=== PATIENT | female | born 1960 | race Caucasian/White ===

== ENCOUNTER 2017-07-30 20:14 | Inpatient (IN) | payer OTHER ==
[2017-07-30 20:14] VITALS: BMI 43.9
[2017-07-30] MEDS ORDERED: Sodium Chloride 0.9% 1,000 ML IV ONE (21:01)
--- NOTE | 2017-07-30 21:01 | C.PDOC ---
History Of Present Illness Patient presents to the ED for evaluation of right upper quadrant abdominal pain which began around 10 days ago. Patient states her pain is associated with nausea, vomiting, and diarrhea. She states symptoms have worsened today and presents to the ED for further evaluation. She denies fever, chills, dysuria, hematuria. Time Seen by Provider: 07/30/17 21:01 Chief Complaint (Nursing): Abdominal Pain History Per: Patient History/Exam Limitations: no limitations Onset/Duration Of Symptoms: Days Current Symptoms Are (Timing): Worse Severity: Mild Pain Scale Rating Of: 4 Location Of Pain/Discomfort: RUQ Radiation Of Pain To:: None Quality Of Discomfort: "Pain" Associated Symptoms: Nausea, Vomiting, Diarrhea. denies: Fever, Chills, Urinary Symptoms (dysuria, hematuria ) Exacerbating Factors: None Alleviating Factors: None Last Bowel Movement: Today Recent travel outside of the [place]: No Additional History Per: Patient Abnormal Vaginal Bleeding: No Past Medical History Reviewed: Historical Data, Nursing Documentation, Vital Signs Vital Signs: Last Vital Signs Temp 98.4 F 07/30/17 23:52 Pulse 87 07/30/17 23:52 Resp 18 07/30/17 23:52 BP 147/88 07/30/17 23:52 Pulse Ox 97 07/30/17 23:55 - Medical History PMH: Arthritis, Back Problems, HTN, Rheumatoid Arthritis Surgical History: Cholecystectomy - [facility] KNEE SYNOVECTOMY (10/06/13) OTH ARTHROTOMY-KNEE (10/06/13) OTHER REPAIR OF KNEE (10/06/13) Family History: States: Unknown Family Hx - Social History Hx Tobacco Use: No Hx Alcohol Use: No Hx Substance Use: No - Immunization History Hx Tetanus Toxoid Vaccination: No Hx Influenza Vaccination: No Hx Pneumococcal Vaccination: No Review Of Systems Constitutional: Negative for: Fever, Chills Cardiovascular: Negative for: Chest Pain, Palpitations Respiratory: Negative for: Cough, Shortness of Breath Gastrointestinal: Positive for: Nausea, Vomiting, Abdominal Pain (right upper quadrant ), Diarrhea Genitourinary: Negative for: Dysuria, Frequency, Hematuria Musculoskeletal: Negative for: Back Pain Skin: Negative for: Rash, Lesions, Jaundice, Bruising Neurological: Negative for: Weakness, Numbness Physical Exam - Physical Exam Appears: Non-toxic, No Acute Distress, Other (morbidly obese ) Skin: Warm, Dry Head: Normacephalic Eye(s): bilateral: Normal Inspection Oral Mucosa: Moist Neck: Supple Chest: Symmetrical, No Deformity, No Tenderness Cardiovascular: Rhythm Regular, No Murmur Respiratory: No Rales, No Rhonchi, No Wheezing Gastrointestinal/Abdominal: Soft, Tenderness (right upper quadrant ), No Guarding, No Rebound Extremity: Normal ROM, Capillary Refill (less than 2 seconds ) Neurological/Psych: Oriented x3 Gait: Steady ED Course And Treatment - Laboratory Results Result Diagrams: 07/30/17 21:22 07/30/17 21:22 ECG: Interpreted By Me, Viewed By Me ECG Rhythm: Sinus Rhythm (90), Nonspecific Changes O2 Sat by Pulse Oximetry: 97 (on RA) Pulse Ox Interpretation: Normal Progress Note: labs ordered and reviewed. Patient received Pepcid IVP, Zofran IVP and IV Fluids. Patient is tolerating PO intake. Disposition Discussed With : Db Desouza Comment: accepted the pt on his service and took over the care at 12AM Doctor Will See Patient In The: Hospital Counseled Patient/Family Regarding: Studies Performed, Diagnosis - Disposition Disposition: HOSPITALIZED Disposition Time: 21:01 Condition: FAIR Forms: [facility] (Setswana) - POA Present On Arrival: Poor Glycemic Control - Clinical Impression Clinical Impression: Nausea, Vomiting, Urinary tract infection, Abdominal pain - Scribe Statement The provider has reviewed the documentation as recorded by the Scribe (Dalia Gordon) Provider Attestation: All medical record entries made by the Scribe were at my direction and personally dictated by me. I have reviewed the chart and agree that the record accurately reflects my personal performance of the history, physical exam, medical decision making, and the department course for this patient. I have also personally directed, reviewed, and agree with the discharge instructions and disposition. Decision To Admit - Pt Status Changed To: Hospital Disposition Of: Inpatient - Admit Certification Admit to Inpatient:: After my assessment, the patient will require hospitalization for at least two midnights. This is because of the severity of symptoms shown, intensity of services needed, and/or the medical risk in this patient being treated as an outpatient. - InPatient: Physician Admission Certification:: After my assessment, the patient will require hospitalization for at least two midnights. This is because of the severity of symptoms shown, intensity of services needed, and/or the medical risk in this patient being treated as an outpatient. - . Bed Request Type: Regular Admitting Physician: Db Desouza Patient Diagnosis: Nausea, Vomiting, Urinary tract infection, Abdominal pain
[2017-07-30] MEDS ORDERED: Sodium Chloride 0.9% 1,000 ML ONE (21:24)
[2017-07-30 21:29] LABS: BASO # 0.1 K/uL (0.0-0.2); EOS # 0.2 K/uL (0.0-0.7); EOS % 1.9 % (0.0-4.0); HEMATOCRIT 39.1 % (34.0-47.0); LYMPH # 2.5 K/uL (1.0-4.3); LYMPH % 29.2 % (20.0-40.0); MEAN CELL VOLUME 80.8 fL (81.0-99.0); MEAN CORPUSCULAR HEMOGLOBIN 26.8 pg (27.0-31.0); MEAN CORPUSCULAR HGB CONC 33.2 g/dL (33.0-37.0); MEAN PLATELET VOLUME 9.8 fL (7.2-11.7); MONO # 0.4 K/uL (0.0-0.8); NRBC % 0.1 % (0.0-2.0); WHITE BLOOD COUNT 8.7 K/uL (4.8-10.8)
[2017-07-30 21:35] LABS: RBC URINE 13 /hpf (0-3); URINE BACTERIA RARE (<OCC); URINE BILIRUBIN NEGATIVE (NEGATIVE); URINE BLOOD 1+ (NEGATIVE); URINE COLOR Yellow (YELLOW); URINE GLUCOSE (UA) NORMAL (Normal); URINE KETONE NEGATIVE (NEGATIVE); URINE LEUKOCYTE ESTERASE 1+ Leu/uL (Negative); URINE PROTEIN 1+ mg/dL (NEGATIVE); URINE UROBILINOGEN NORMAL mg/dL (0.2-1.0); WBC URINE 26 /hpf (0-5)
[2017-07-30 21:37] LABS: POTASSIUM 3.8 mmol/L (3.6-5.2)
[2017-07-30 21:39] LABS: BILIRUBIN,TOTAL 0.8 mg/dL (0.2-1.3)
[2017-07-30 21:40] LABS: ALB/GLOB RATIO 1.4 (1.0-2.1); CALCIUM 9.3 mg/dl (8.6-10.4); TOTAL PROTEIN 8.1 g/dL (6.3-8.3)
[2017-07-30] MEDS ORDERED: Iohexol 300 100 ML IJ ONE (22:05)
--- NOTE | 2017-07-30 23:22 | CT ---
EXAM: CT Abdomen and Pelvis With Intravenous Contrast CLINICAL HISTORY: 57 years old, female; Pain; Abdominal pain; Flank; Right upper quadrant (ruq); Additional info: Ruq abd pain TECHNIQUE: Axial computed tomography images of the abdomen and pelvis with intravenous contrast. All CT scans at this facility use one or more dose reduction techniques, viz.: automated exposure control; ma/kV adjustment per patient size (including targeted exams where dose is matched to indication; i.e. head); or iterative reconstruction technique. Coronal and sagittal reformatted images were created and reviewed. CONTRAST: 100 mL of omnipaque 300 administered intravenously. COMPARISON: CT - ABD PELVIS IV CONTRAST ONLY 07/30/2014 8:08:42 PM FINDINGS: Limitations: Motion artifact - mild. Lower thorax: Probable volume averaging RIGHT hilar region. ABDOMEN: Liver: Fatty infiltration. Gallbladder and bile ducts: Cholecystectomy. No ductal dilation. Pancreas: No ductal dilation. No mass. Spleen: No splenomegaly. Adrenals: No mass. Kidneys and ureters: No mass. No hydronephrosis. Stomach and bowel: Segmental areas of underdistention of colon. No definite mural thickening. No obstruction. Appendix: Normal caliber. No inflammation. PELVIS: Bladder: Unremarkable. Reproductive: Unremarkable as visualized. ABDOMEN and PELVIS: Intraperitoneal space: No significant fluid collection. No free air. Bones/joints: Mild degenerative changes of spine. No acute fracture. Soft tissues: Small umbilical hernia containing fat. Vasculature: Unremarkable. No aneurysm. Lymph nodes: No pathologically enlarged lymph nodes. IMPRESSION: 1. No definite acute intraabdominal abnormality. 2. Incidental/non-acute findings are described above.
[2017-07-31] MEDS ORDERED: Piperacillin/Tazobact 3.375 gm 100 ML IVPB STA (00:03)
[2017-07-31] MEDS ORDERED: Piperacillin/Tazobact 3.375 gm 100 ML IVPB ONE (00:06)
[2017-07-31] MEDS ORDERED: Sodium Chloride 0.45% 1,000 ML IV SCH (06:00)
[2017-07-31 08:17] VITALS: PULSE 72; RESP 18; TEMP 97.7; O2SAT 97
[2017-07-31] MEDS ORDERED: Enoxaparin 40 mg Syringe SC SCH (10:00)
[2017-07-31] MEDS ORDERED: Brimonidine 0.2% Opth Sol (5ml) OU SCH (10:00)
[2017-07-31 11:07] VITALS: BP 121/70
[2017-07-31] MEDS ORDERED: Pneumococcal 23-Valent Vaccine IM ONE (13:15)
--- NOTE | 2017-08-01 03:27 | HP ---
HISTORY OF PRESENT ILLNESS: The patient is a 57-year-old female admitted to the hospital with complaint of abdomina pain and weakness. The patient was evaluated upon admission. PHYSICAL EXAMINATION GENERAL: The patient is awake, alert and oriented, obese. VITAL SIGNS: Temperature 98, pulse 90. HEENT: Within normal limits. NECK: Supple. CHEST: Symmetrical. HEART: Regular. ABDOMEN: Soft. . EXTREMITIES: No edema. IMPRESSION AND PLAN: The patient with gastritis, . Db Desouza MD
--- NOTE | 2017-08-02 16:07 | CARD ---
APPROVED REPORT EKG Measurement Heart [id number] <Conclusion> Normal sinus rhythm Low voltage QRS Borderline ECG
== END 2017-07-31 13:40 | disposition home or self-care (01) | DRG 321 ==
LOC: C.ER 20:14 → C.9E 07-31 00:01 → C.6T 07-31 00:21
PROVIDERS: ADMIT Internal Medicine Pulmonary Disease; ATTEND Internal Medicine Pulmonary Disease
DX: N39.0 Urinary tract infection, site not specified (principal); Z68.41 Body mass index [BMI] 40.0-44.9, adult; I10 Essential (primary) hypertension; K29.70 Gastritis, unspecified, without bleeding; M06.9 Rheumatoid arthritis, unspecified